=== PATIENT | male | born 1995 | race Caucasian/White ===

== ENCOUNTER → 2017-08-30 | Outpatient (CLI) | payer OTHER ==
--- NOTE | 2017-08-30 10:50 | RAD ---
EXAM DESCRIPTION: Ankle,Left 3 Views CLINICAL HISTORY: 21 years, Male, PAIN COMPARISON: None. TECHNIQUE: AP/lateral/oblique of the ankle FINDINGS: No fracture, dislocation, or disruption of the ankle mortice is present. The bones are normally mineralized and without significant degenerative disease. No soft tissue abnormalities are noted. IMPRESSION: 1. Normal left ankle three views. Electronically signed by: Bacilio English MD 08/30/2017 10:49 AM CDT
== END | disposition home or self-care (01) ==
LOC: RAD 09:26
PROVIDERS: ATTEND Orthopaedic Surgery
DX: M25.572 Pain in left ankle and joints of left foot (principal)